=== PATIENT | female | born 1965 | race Caucasian/White ===

== ENCOUNTER 2017-11-12 21:28 | Emergency (ER) | payer OTHER ==
[2017-11-12 22:25] VITALS: BP 151/87
--- NOTE | 2017-11-12 23:28 | ED SKIN/ALLERGY COMPLAINT ---
History of Present Illness General Chief Complaint: Skin Rash/ Abcess Stated Complaint: ITCHY RASH ON ARM Source: patient Exam Limitations: no limitations Vital Signs & Intake/Output Vital Signs & Intake/Output Vital Signs Date Time Temp Pulse Resp B/P B/P Pulse O2 O2 Flow FiO2 Mean Ox Delivery Rate 11/12 2354 100 Room Air 11/12 2225 97.0 67 151/87 Allergies Coded Allergies: NO KNOWN ALLERGIES (10/17/11) Reconcile Medications Methylprednisolone. (Medrol) 4 MG TAB.DS.PK 1 DP PO AD ECZEMA 6 on day 1 then reduce by one tablet daily until gone Triage Note: PER PT BAD EXCEMA AND RT WRIST ITCHY AND SWOLLEN HAS NOT HAD A FLARE IN LONG TIME DID NOT SEE ANYONE Triage Nurses Notes Reviewed? yes Onset: Abrupt Duration: day(s):, constant Timing: recent history Severity: mild, moderate No Modifying Factors: none HPI: 52-year-old female comes into the emergency room for further evaluation of rash to right hand and wrist. Patient reports that she has a history of eczema. She reports that she has itchiness and spreading of the rash. Feels like her eczema. Denies any fever chills. She's been using her topical cream at home with no relief. (Vic Phillip) Past History Travel History Traveled to [place] past 21 day No Medical History Any Pertinent Medical History? see below for history Neurological: NONE EENT: NONE Cardiovascular: NONE Respiratory: NONE Gastrointestinal: NONE Hepatic: NONE Renal: NONE Musculoskeletal: NONE Psychiatric: NONE Endocrine: NONE Surgical History Surgical History: non-contributory Psychosocial History What is your primary language Azeri Tobacco Use: Never used Family History Hx Contributory? No (Vic Phillip) Review of Systems Review of Systems Constitutional: Reports: no symptoms. EENTM: Reports: no symptoms. Respiratory: Reports: no symptoms. Cardiovascular: Reports: no symptoms. GI: Reports: no symptoms. Genitourinary: Reports: no symptoms. Musculoskeletal: Reports: no symptoms. Skin: Reports: see HPI. Neurological/Psychological: Reports: no symptoms. Hematologic/Endocrine: Reports: no symptoms. Immunologic/Allergic: Reports: no symptoms. All Other Systems: Reviewed and Negative (Vic Phillip) Physical Exam Physical Exam General Appearance: well developed/nourished, no apparent distress, alert Head: atraumatic Eyes: Bilateral: normal appearance. Ears, Nose, Throat: normal ENT inspection, hearing grossly normal Neck: normal inspection Respiratory: no respiratory distress Skin: intact, rash Skin Problem Location: upper extremities, MACULOPAPULAR ERYTHEMATOUS RASH RIGHT HAND TO WRIST, LICHENIFICATION, (Vic Phillip) Progress Differential Diagnosis: abscess/cellulitis, contact dermatitis, ATOPIC DERMATITIS Plan of Care: 11/13/2017 12:27:20 AM Rash most consistent with eczema. Patient started on Medrol Dosepak. No secondary signs of infection. Return if any other concerns. (Vic Phillip) Departure Departure Disposition: HOME OR SELF CARE Condition: Stable Clinical Impression Primary Impression: Atopic dermatitis Referrals: Portia BAKER,[place] (PCP/Family) Additional Instructions: Take Medrol Dosepak as prescribed. Benadryl as needed for itching. Use topical moling and set you have at home. Follow-up with working supervisor. Please go over all results of today's visit with your primary care doctor. Contact your primary care doctor to let them know you were here in the emergency room. There may be nonspecific findings which may not be related to your visit today here in the emergency room but may require further evaluation and chronic monitoring by your primary care doctor. If you had a laceration today the chance of foreign body always remains. You should follow-up with your primary care doctor for recheck in 3-5 days for a wound check. If you had an x-ray done there is a chance that a fracture could have been missed on initial read and you should follow-up with your primary care doctor for repeat x-rays if symptoms persist. If your blood pressure was elevated here in the emergency room please have rechecked by [facility] primary care doctor within the next 48. If you were prescribed a narcotic here in the emergency room or any type of controlled substances you're not allowed to drive while taking this medication or operate any type of heavy machinery. Narcotics can make you feel lightheaded dizziness nausea and can cause constipation. You may need to pepper picker a stool softener. Thank you for choosing [facility] emergency room. Please return to the emergency room immediately if you have any other concerns worsening of symptoms. Departure Forms: Customer Survey General Discharge Information Prescriptions: Current Visit Scripts Methylprednisolone. (Medrol) 1 DP PO AD #1 DP 6 on day 1 then reduce by one tablet daily until gone (Vic Phillip) PA/RUBBER GOODS INSPECTOR Co-Sign Statement Statement: ED Attending supervision documentation- [] I saw and evaluated the patient. I have also reviewed all the pertinent lab results and diagnostic results. I agree with the findings and the plan of care as documented in the PA's/RUBBER GOODS INSPECTOR's documentation. [X] I have reviewed the ED Record and agree with the PA's/RUBBER GOODS INSPECTOR's documentation. [] Additions or exceptions (if any) to the PAs/RUBBER GOODS INSPECTOR's note and plan are summarized below: [] (Barby BAKER,Galo Peters)
[2017-11-12] MEDS ORDERED: MEDROL4 M2 PO (23:36)
== END 2017-11-12 23:55 ==
LOC: ERH 21:28
DX: L20.9 Atopic dermatitis, unspecified (principal)